=== PATIENT | male | born 1990 | race Caucasian/White ===

== ENCOUNTER 2021-08-01 20:31 | Inpatient (IN) ==
[2021-08-01] MEDS ORDERED: Acetaminophen 325 MG TABLET PO PRN (22:59)
[2021-08-01] MEDS ORDERED: Ondansetron 4 MG/2 ML VIAL IVP PRN (22:59)
[2021-08-01] MEDS ORDERED: Naloxone 0.4 MG/ML INJ IVP PRN (22:59)
[2021-08-01] MEDS ORDERED: Ipratropium/Albuterol Neb 3 ML IH PRN (23:03)
[2021-08-02 01:17] LABS: Basophils % 0.1 %; Hematocrit 43.4 % (37.5-50.1); Hemoglobin 14.5 g/dL (12.9-16.9); Immature Granulocytes % 1.2 % (0-4); Lymphocytes # 0.6 K/mcL (0.6-4.6); Lymphocytes % 5.4 %; Mean Corpuscular HGB Conc 33.4 g/dL (31.6-35.5); Mean Corpuscular Hemoglobin 29.5 pg (28.0-33.3); Mean Corpuscular Volume 88.4 fL (83.0-100.0); Mean Platelet Volume 9.7 fL (9.4-12.4); Monocytes # 0.2 K/mcL (0.0-1.3); Neutrophils # 9.9 K/mcL (1.6-8.9); Platelet Count 241 K/mcL (140-400); Red Blood Count 4.91 M/mcL (4.19-5.50); Red Cell Distribution Width 12.2 % (11.5-14.5); Segmented Neutrophils % 91.3 %; White Blood Count 10.9 K/mcL (4.3-11.1)
[2021-08-02 01:28] LABS: INR 1.2; Prothrombin Time 13.9 Seconds (9.4-12.1)
[2021-08-02 01:39] LABS: Alanine Aminotransferase 38 Units/L (7-52); Albumin 3.5 g/dL (3.5-5.7); Albumin/Globulin Ratio 1.1 (1.1-2.2); Alkaline Phosphatase 51 Units/L (34-104); Aspartate Amino Transferase 60 Units/L (13-39); BUN/Creatinine Ratio 15 (6-26); Bilirubin,Direct 0.3 mg/dL (0.0-0.2); Bilirubin,Indirect 0.4 mg/dL (0.0-1.0); Bilirubin,Total 0.7 mg/dL (0.3-1.0); Blood Urea Nitrogen 19 mg/dL (6-20); Calcium 8.3 mg/dL (8.6-10.3); Carbon Dioxide 23 mEq/L (23-29); Chloride 103 mEq/L (98-107); Chol/HDL Ratio 3.8 (0-4.9); Cholesterol 76 mg/dL (< 200); Creatine Kinase 540 Units/L (30-223); Globulin 3.3 g/dL (2.4-3.5); Glucose 147 mg/dL (70-105); HDL Cholesterol 20 mg/dL (40-59); LDL Cholesterol,Calculated 31 mg/dL (< 100); Lactate Dehydrogenase 928 Units/L (140-271); Magnesium 2.6 mg/dL (1.6-2.6); Osmolality,Calculated 285 (280-300); Sodium 135 mEq/L (136-145); Total Protein 6.8 g/dL (6.4-8.9); Triglycerides 123 mg/dL (< 150); eGFR For African Americans > 60 (> 60); eGFR For Non-African Americans > 60 (> 60)
[2021-08-02 01:40] LABS: Troponin I 0.03 ng/mL (< 0.04)
[2021-08-02 02:00] LABS: Ferritin > 1500 ng/mL (20-250)
[2021-08-02] MEDS ORDERED: Remdesivir 200 MG in 0.9 % Sodium Chloride 100 ML IVPB ONE (02:30)
[2021-08-02] MEDS ORDERED: Pantoprazole 40 MG VIAL IVP SCH (09:00)
[2021-08-02] MEDS ORDERED: *HR* Enoxaparin 40 MG/0.4 ML SYRINGE SQ SCH (09:00)
[2021-08-02] MEDS ORDERED: cefTRIAXone 1,000 MG in 0.9 % Sodium Chloride Mini Bag 100 ML IVPB SCH (09:00)
[2021-08-02] MEDS ORDERED: Azithromycin 500 MG in 0.9 % Sodium Chloride 250 ML IVPB SCH (09:00)
[2021-08-02] MEDS ORDERED: Dexamethasone Sodium Phos/PF 10 MG/ML VIAL IVP SCH (09:00)
[2021-08-02] MEDS ORDERED: Dexamethasone Sodium Phos/PF 10 MG/ML VIAL IVP ONE (12:19)
[2021-08-02] MEDS ORDERED: Acetaminophen 325 MG TABLET PO PRN (14:02)
[2021-08-02] MEDS ORDERED: Ipratropium/Albuterol Neb 3 ML IH PRN (14:02)
[2021-08-02] MEDS ORDERED: Naloxone 0.4 MG/ML INJ IVP PRN (14:02)
[2021-08-02] MEDS ORDERED: Ondansetron 4 MG/2 ML VIAL IVP PRN (14:02)
[2021-08-02] MEDS ORDERED: Dexmedetomidine HCl 400 MCG/100 ML MLS IVC SCH (14:30)
[2021-08-02] MEDS ORDERED: Dexmedetomidine HCl 400 MCG/100 ML MLS IVC ONE (14:39)
[2021-08-02 15:30] LABS: Bilirubin,Urine Negative (Negative); Blood,Urine Trace (Negative); Clarity,Urine Clear (Clear); Color,Urine Yellow (Yellow); Glucose,Urine (UA) Normal (Normal); Ketones,Urine Negative (Negative); Leukocyte Esterase,Urine Negative (Negative); Mucus,Urine Few per lpf (None-Few); Nitrite,Urine Negative (Negative); Protein,Urine 50 mg/dL (Neg-Trace); RBC,Urine 0-3 per hpf (0-3); Specific Gravity,Urine > 1.030 (1.010-1.025); Squamous Epithelial Cell,Urine Few per hpf (None-Few); Urobilinogen,Urine Normal (Normal)
[2021-08-02] MEDS: *HR* Enoxaparin 60 MG/0.6 ML SYRINGE SQ SCH (16:54)
[2021-08-03] MEDS ORDERED: Remdesivir 100 MG in 0.9 % Sodium Chloride 100 ML IVPB SCH (02:00)
[2021-08-03] MEDS: Remdesivir 100 MG in 0.9 % Sodium Chloride 100 ML IVPB SCH (02:16)
[2021-08-03 04:32] LABS: Basophils % 0.2 %; Hematocrit 43.5 % (37.5-50.1); Hemoglobin 14.8 g/dL (12.9-16.9); Immature Granulocytes % 1.2 % (0-4); Lymphocytes # 0.9 K/mcL (0.6-4.6); Lymphocytes % 6.6 %; Mean Corpuscular Hemoglobin 30.7 pg (28.0-33.3); Mean Corpuscular Volume 90.2 fL (83.0-100.0); Mean Platelet Volume 9.9 fL (9.4-12.4); Monocytes # 0.4 K/mcL (0.0-1.3); Monocytes % 3.4 %; Neutrophils # 11.5 K/mcL (1.6-8.9); Platelet Count 293 K/mcL (140-400); Red Blood Count 4.82 M/mcL (4.19-5.50); Red Cell Distribution Width 12.7 % (11.5-14.5); Segmented Neutrophils % 88.6 %; White Blood Count 12.9 K/mcL (4.3-11.1)
[2021-08-03 04:52] LABS: Alanine Aminotransferase 36 Units/L (7-52); Albumin 3.3 g/dL (3.5-5.7); Alkaline Phosphatase 73 Units/L (34-104); Aspartate Amino Transferase 48 Units/L (13-39); BUN/Creatinine Ratio 28 (6-26); Bilirubin,Direct 0.2 mg/dL (0.0-0.2); Bilirubin,Indirect 0.5 mg/dL (0.0-1.0); Bilirubin,Total 0.7 mg/dL (0.3-1.0); Blood Urea Nitrogen 32 mg/dL (6-20); C-Reactive Protein 159 mg/L (Less than 10); Calcium 8.5 mg/dL (8.6-10.3); Carbon Dioxide 26 mEq/L (23-29); Chloride 109 mEq/L (98-107); Globulin 3.3 g/dL (2.4-3.5); Glucose 158 mg/dL (70-105); Osmolality,Calculated 304 (280-300); Potassium 4.1 mEq/L (3.5-5.1); Sodium 142 mEq/L (136-145); Total Protein 6.6 g/dL (6.4-8.9); eGFR For African Americans > 60 (> 60); eGFR For Non-African Americans > 60 (> 60)
[2021-08-03 05:17] LABS: Ferritin > 1500 ng/mL (20-250)
[2021-08-03] MEDS: *HR* Enoxaparin 60 MG/0.6 ML SYRINGE SQ SCH ×2 (06:05→16:48)
[2021-08-03] MEDS: Pantoprazole 40 MG VIAL IVP SCH (08:25)
[2021-08-03] MEDS ORDERED: Dexamethasone Sodium Phos/PF 10 MG/ML VIAL IVP SCH ×2 (09:00)
[2021-08-03] MEDS ORDERED: Azithromycin 500 MG in 0.9 % Sodium Chloride 250 ML IVPB SCH (09:00)
[2021-08-03] MEDS ORDERED: *HR* Enoxaparin 40 MG/0.4 ML SYRINGE SQ SCH (09:00)
[2021-08-03] MEDS ORDERED: cefTRIAXone 1,000 MG in Water for inj. (sterile) 10 ML IVP SCH (09:00)
[2021-08-03] MEDS ORDERED: cefTRIAXone 1,000 MG in 0.9 % Sodium Chloride Mini Bag 100 ML IVPB SCH (09:00)
[2021-08-03 14:36] LABS: Phosphorous 3.2 mg/dL (2.7-4.5); Triglycerides 159 mg/dL (< 150)
[2021-08-03] MEDS ORDERED: Furosemide 40 MG/4 ML VIAL IVP ONE (15:01)
[2021-08-03] MEDS ORDERED: D10% in Water 500 ML IVC PRN (15:02)
[2021-08-03] MEDS ORDERED: Clinimix E 5%-15% SOLUTION 2,000 ML with MVI, adult with vitamin K 10 ML IVC SCH (17:00)
[2021-08-04] MEDS: Remdesivir 100 MG in 0.9 % Sodium Chloride 100 ML IVPB SCH (01:13)
[2021-08-04 03:52] LABS: Basophils # 0.1 K/mcL (0.0-0.2); Basophils % 0.5 %; Hematocrit 43.6 % (37.5-50.1); Hemoglobin 14.1 g/dL (12.9-16.9); Immature Granulocytes % 1.5 % (0-4); Lymphocytes # 0.8 K/mcL (0.6-4.6); Lymphocytes % 7.6 %; Mean Corpuscular HGB Conc 32.3 g/dL (31.6-35.5); Mean Corpuscular Hemoglobin 29.6 pg (28.0-33.3); Mean Corpuscular Volume 91.6 fL (83.0-100.0); Mean Platelet Volume 9.9 fL (9.4-12.4); Monocytes # 0.4 K/mcL (0.0-1.3); Monocytes % 3.9 %; Neutrophils # 8.9 K/mcL (1.6-8.9); Platelet Count 273 K/mcL (140-400); Red Blood Count 4.76 M/mcL (4.19-5.50); Segmented Neutrophils % 86.5 %; White Blood Count 10.3 K/mcL (4.3-11.1)
[2021-08-04 04:05] LABS: Prealbumin 7.7 mg/dL (17.0-34.0)
[2021-08-04 04:09] LABS: Alanine Aminotransferase 33 Units/L (7-52); Albumin 3.2 g/dL (3.5-5.7); Alkaline Phosphatase 78 Units/L (34-104); Aspartate Amino Transferase 38 Units/L (13-39); BUN/Creatinine Ratio 31 (6-26); Bilirubin,Direct 0.1 mg/dL (0.0-0.2); Bilirubin,Indirect 0.5 mg/dL (0.0-1.0); Bilirubin,Total 0.6 mg/dL (0.3-1.0); Blood Urea Nitrogen 36 mg/dL (6-20); C-Reactive Protein 85 mg/L (Less than 10); Calcium 8.1 mg/dL (8.6-10.3); Carbon Dioxide 27 mEq/L (23-29); Chloride 111 mEq/L (98-107); Globulin 3.2 g/dL (2.4-3.5); Glucose 201 mg/dL (70-105); Magnesium 3.2 mg/dL (1.6-2.6); Osmolality,Calculated 312 (280-300); Phosphorous 3.9 mg/dL (2.7-4.5); Potassium 4.1 mEq/L (3.5-5.1); Sodium 144 mEq/L (136-145); Total Protein 6.4 g/dL (6.4-8.9); eGFR For African Americans > 60 (> 60); eGFR For Non-African Americans > 60 (> 60)
[2021-08-04 04:12] LABS: Procalcitonin 0.25 ng/mL (0.00-0.15)
[2021-08-04] MEDS: *HR* Enoxaparin 60 MG/0.6 ML SYRINGE SQ SCH ×2 (04:58→17:25)
[2021-08-04] MEDS: Cholecalciferol (D-3) 1,000 UNIT (25MCG) TABLET PO SCH (07:31)
[2021-08-04] MEDS: Pantoprazole 40 MG VIAL IVP SCH (07:31)
[2021-08-04] MEDS: Dexamethasone Sodium Phos/PF 10 MG/ML VIAL IVP SCH (07:31)
[2021-08-04] MEDS: Dexmedetomidine HCl 400 MCG/100 ML MLS IVC SCH (11:08)
[2021-08-04] MEDS ORDERED: Furosemide 40 MG/4 ML VIAL IVP ONE (12:29)
[2021-08-04 13:30] LABS: Ferritin > 1500 ng/mL (20-250)
[2021-08-04] MEDS ORDERED: Clinimix 5%-20% SOLUTION 2,000 ML with MVI, adult with vitamin K 10 ML, Sodium Phosph... IVC SCH (17:00)
[2021-08-04] MEDS: FentaNYL (PF) 1,000 MCG/100 ML IV.SOLN IVC SCH ×2 (17:25→21:50)
[2021-08-04] MEDS ORDERED: 0.9 % Sodium Chloride 500 ML ONE (17:25)
[2021-08-04] MEDS ORDERED: Artificial Tears SOLN 15 ML BOTTLE BOTH EYES PRN (17:30)
[2021-08-04 18:07] LABS: ABG Base Excess 2 mEq/L (-2 to 3); ABG HCO3 27 mEq/L (21-27); ABG Oxygen Saturation 91 % (95-98); ABG PCO2 44 mmHg (35-45); ABG PH 7.39 pH Units (7.32-7.45); ABG PO2 61 mmHg (85-104); ABG TCO2 28 mEq/L (20-26); Blood Gas Modality AF; Blood Gas VT 400 cc
[2021-08-04] MEDS ORDERED: 0.9 % Sodium Chloride 1,000 ML ONE (18:37)
[2021-08-04] MEDS: Cisatracurium 200 MG in 0.9 % Sodium Chloride 180 ML IVC SCH (19:20)
[2021-08-04] MEDS: Chlorhexidine Rinse 15 ML MOUTHWASH MM SCH (20:43)
[2021-08-04] MEDS: Artificial Tears SOLN 15 ML BOTTLE BOTH EYES SCH ×2 (20:43→23:35)
[2021-08-05] MEDS: Remdesivir 100 MG in 0.9 % Sodium Chloride 100 ML IVPB SCH (02:43)
[2021-08-05] MEDS: FentaNYL (PF) 1,000 MCG/100 ML IV.SOLN IVC SCH ×4 (02:50→19:05)
[2021-08-05] MEDS ORDERED: Dextrose Gel 15 GM/37.5 ML TUBE PO PRN ×2 (03:26)
[2021-08-05] MEDS ORDERED: *HR* Dextrose 50 % in Water (Syg) 50 ML SYRINGE IVP PRN (03:26)
[2021-08-05] MEDS ORDERED: D5% in Water 1,000 ML IVC PRN (03:26)
[2021-08-05] MEDS ORDERED: Insulin LISPRO 300 UNITS/3 ML VIAL SUBQ SCH (03:30)
[2021-08-05] MEDS: Artificial Tears SOLN 15 ML BOTTLE BOTH EYES SCH ×8 (03:36→23:23)
[2021-08-05 04:44] LABS: VBG Ionized Calcium 1.15 mmol/L (1.15-1.35)
[2021-08-05] MEDS: Norepinephrine 4 MG/254 ML IV.SOLN IVC SCH ×2 (04:48→19:21)
[2021-08-05] MEDS: Dexmedetomidine HCl 400 MCG/100 ML MLS IVC SCH ×2 (04:49→19:22)
[2021-08-05 04:52] LABS: Basophils % 0.3 %; Eosinophils % 0.2 %; Hematocrit 45.5 % (37.5-50.1); Hemoglobin 14.5 g/dL (12.9-16.9); Immature Granulocytes % 1.6 % (0-4); Lymphocytes # 0.8 K/mcL (0.6-4.6); Lymphocytes % 8.5 %; Mean Corpuscular HGB Conc 31.9 g/dL (31.6-35.5); Mean Corpuscular Hemoglobin 30.5 pg (28.0-33.3); Mean Corpuscular Volume 95.8 fL (83.0-100.0); Mean Platelet Volume 10.2 fL (9.4-12.4); Monocytes # 0.3 K/mcL (0.0-1.3); Monocytes % 3.5 %; Neutrophils # 8.4 K/mcL (1.6-8.9); Platelet Count 202 K/mcL (140-400); Red Blood Count 4.75 M/mcL (4.19-5.50); Red Cell Distribution Width 12.9 % (11.5-14.5); Segmented Neutrophils % 85.9 %; White Blood Count 9.8 K/mcL (4.3-11.1)
[2021-08-05 05:12] LABS: Alanine Aminotransferase 35 Units/L (7-52); Albumin 3.2 g/dL (3.5-5.7); Albumin/Globulin Ratio 1.1 (1.1-2.2); Alkaline Phosphatase 79 Units/L (34-104); Aspartate Amino Transferase 33 Units/L (13-39); BUN/Creatinine Ratio 31 (6-26); Bilirubin,Direct 0.1 mg/dL (0.0-0.2); Bilirubin,Indirect 0.5 mg/dL (0.0-1.0); Bilirubin,Total 0.6 mg/dL (0.3-1.0); Blood Urea Nitrogen 36 mg/dL (6-20); C-Reactive Protein 44 mg/L (Less than 10); Carbon Dioxide 27 mEq/L (23-29); Chloride 110 mEq/L (98-107); Globulin 2.9 g/dL (2.4-3.5); Glucose 220 mg/dL (70-105); Magnesium 3.2 mg/dL (1.6-2.6); Osmolality,Calculated 311 (280-300); Phosphorous 4.5 mg/dL (2.7-4.5); Potassium 4.6 mEq/L (3.5-5.1); Sodium 143 mEq/L (136-145); Total Protein 6.1 g/dL (6.4-8.9); eGFR For African Americans > 60 (> 60); eGFR For Non-African Americans > 60 (> 60)
[2021-08-05] MEDS: *HR* Enoxaparin 60 MG/0.6 ML SYRINGE SQ SCH (05:29)
[2021-08-05] MEDS: Cisatracurium 200 MG in 0.9 % Sodium Chloride 180 ML IVC SCH ×2 (05:39→15:59)
[2021-08-05] MEDS ORDERED: *HR* Heparin 5,000 UNIT/ML VIAL IVP ONE (07:53)
[2021-08-05] MEDS ORDERED: *HR* Heparin 5,000 UNIT/ML VIAL IVP PRN ×2 (07:53)
[2021-08-05] MEDS ORDERED: Heparin 25,000UNIT/250ML 1/2NS 25,000 UNIT/250 ML IV.SOLN IVC SCH (08:00)
[2021-08-05] MEDS: Cholecalciferol (D-3) 1,000 UNIT (25MCG) TABLET PO SCH (08:20)
[2021-08-05] MEDS: Pantoprazole 40 MG VIAL IVP SCH (08:20)
[2021-08-05] MEDS: Dexamethasone Sodium Phos/PF 10 MG/ML VIAL IVP SCH (08:20)
[2021-08-05] MEDS: Chlorhexidine Rinse 15 ML MOUTHWASH MM SCH ×2 (08:20→19:22)
[2021-08-05 09:21] LABS: Hematocrit 45.3 % (37.5-50.1); Hemoglobin 14.3 g/dL (12.9-16.9); Mean Corpuscular HGB Conc 31.6 g/dL (31.6-35.5); Mean Corpuscular Hemoglobin 30.2 pg (28.0-33.3); Mean Corpuscular Volume 95.8 fL (83.0-100.0); Platelet Count 189 K/mcL (140-400); Red Blood Count 4.73 M/mcL (4.19-5.50); Red Cell Distribution Width 12.9 % (11.5-14.5); White Blood Count 9.8 K/mcL (4.3-11.1)
[2021-08-05 09:25] LABS: Heparin anti-factor XA UFH 0.56 IU/mL (0.30-0.70); INR 1.3; Prothrombin Time 14.5 Seconds (9.4-12.1)
[2021-08-05] MEDS: Heparin 25,000 UNIT/250 ML 25,000 UNIT/250 ML IV.SOLN IVC SCH (10:17)
[2021-08-05] MEDS ORDERED: D10% in Water 500 ML IVC PRN (11:31)
[2021-08-05] MEDS: Insulin LISPRO 300 UNITS/3 ML VIAL SUBQ SCH ×4 (11:58→23:23)
[2021-08-05] MEDS ORDERED: Clinimix 5%-20% SOLUTION 2,000 ML with MVI, adult with vitamin K 10 ML, Sodium Phosph... IVC SCH (17:00)
[2021-08-06] MEDS: FentaNYL (PF) 2,500 MCG/50 ML IV.SOLN IVC SCH ×3 (00:48→18:19)
[2021-08-06] MEDS: Remdesivir 100 MG in 0.9 % Sodium Chloride 100 ML IVPB SCH (03:18)
[2021-08-06] MEDS: Cisatracurium 200 MG in 0.9 % Sodium Chloride 180 ML IVC SCH ×2 (03:31→14:55)
[2021-08-06 03:33] LABS: Basophils % 0.3 %; Eosinophils # 0.1 K/mcL (0.0-0.6); Eosinophils % 0.9 %; Hematocrit 44.9 % (37.5-50.1); Hemoglobin 14.4 g/dL (12.9-16.9); Immature Granulocytes % 2.9 % (0-4); Lymphocytes # 0.6 K/mcL (0.6-4.6); Lymphocytes % 6.5 %; Mean Corpuscular HGB Conc 32.1 g/dL (31.6-35.5); Mean Corpuscular Hemoglobin 30.8 pg (28.0-33.3); Mean Corpuscular Volume 96.1 fL (83.0-100.0); Mean Platelet Volume 9.9 fL (9.4-12.4); Monocytes # 0.4 K/mcL (0.0-1.3); Monocytes % 3.7 %; Neutrophils # 8.5 K/mcL (1.6-8.9); Platelet Count 218 K/mcL (140-400); Red Blood Count 4.67 M/mcL (4.19-5.50); Red Cell Distribution Width 12.5 % (11.5-14.5); Segmented Neutrophils % 85.7 %; White Blood Count 9.9 K/mcL (4.3-11.1)
[2021-08-06] MEDS: Artificial Tears SOLN 15 ML BOTTLE BOTH EYES SCH ×6 (03:34→23:53)
[2021-08-06 03:46] LABS: Heparin anti-factor XA UFH 0.82 IU/mL (0.30-0.70)
[2021-08-06 03:55] LABS: Alanine Aminotransferase 39 Units/L (7-52); Albumin/Globulin Ratio 1.1 (1.1-2.2); Alkaline Phosphatase 67 Units/L (34-104); Aspartate Amino Transferase 25 Units/L (13-39); BUN/Creatinine Ratio 24 (6-26); Bilirubin,Direct 0.1 mg/dL (0.0-0.2); Bilirubin,Indirect 0.4 mg/dL (0.0-1.0); Bilirubin,Total 0.5 mg/dL (0.3-1.0); Blood Urea Nitrogen 24 mg/dL (6-20); C-Reactive Protein 25 mg/L (Less than 10); Calcium 7.9 mg/dL (8.6-10.3); Carbon Dioxide 30 mEq/L (23-29); Chloride 110 mEq/L (98-107); Globulin 2.7 g/dL (2.4-3.5); Glucose 196 mg/dL (70-105); Osmolality,Calculated 303 (280-300); Phosphorous 3.3 mg/dL (2.7-4.5); Potassium 5.1 mEq/L (3.5-5.1); Sodium 142 mEq/L (136-145); Total Protein 5.7 g/dL (6.4-8.9); eGFR For African Americans > 60 (> 60); eGFR For Non-African Americans > 60 (> 60)
[2021-08-06] MEDS: Insulin LISPRO 300 UNITS/3 ML VIAL SUBQ SCH ×6 (04:19→23:53)
[2021-08-06 04:55] LABS: ABG Base Excess 1 mEq/L (-2 to 3); ABG HCO3 28 mEq/L (21-27); ABG Oxygen Saturation 100 % (95-98); ABG PCO2 54 mmHg (35-45); ABG PH 7.32 pH Units (7.32-7.45); ABG PO2 186 mmHg (85-104); ABG TCO2 30 mEq/L (20-26); Blood Gas Modality ASSIST CONTROL; Blood Gas VT 400 cc
[2021-08-06] MEDS: Heparin 25,000 UNIT/250 ML 25,000 UNIT/250 ML IV.SOLN IVC SCH (06:38)
[2021-08-06] MEDS: Cholecalciferol (D-3) 1,000 UNIT (25MCG) TABLET PO SCH (07:19)
[2021-08-06] MEDS: Chlorhexidine Rinse 15 ML MOUTHWASH MM SCH ×2 (07:19→20:20)
[2021-08-06] MEDS: Pantoprazole 40 MG VIAL IVP SCH (07:19)
[2021-08-06] MEDS: Dexamethasone Sodium Phos/PF 10 MG/ML VIAL IVP SCH (07:20)
[2021-08-06 08:20] LABS: ABG Base Excess 2 mEq/L (-2 to 3); ABG HCO3 29 mEq/L (21-27); ABG Oxygen Saturation 99 % (95-98); ABG PCO2 54 mmHg (35-45); ABG PH 7.33 pH Units (7.32-7.45); ABG PO2 130 mmHg (85-104); ABG TCO2 30 mEq/L (20-26); Blood Gas Modality ASSIST CONTROL; Blood Gas VT 400 cc
[2021-08-06] MEDS ORDERED: Clinimix 5%-20% SOLUTION 2,000 ML with MVI, adult with vitamin K 10 ML, Sodium Phosph... IVC SCH (17:00)
[2021-08-06 19:04] LABS: Ferritin 1050 ng/mL (20-250)
[2021-08-06] MEDS: Dexmedetomidine HCl 400 MCG/100 ML MLS IVC SCH (21:11)
[2021-08-06] MEDS: Norepinephrine 4 MG/254 ML IV.SOLN IVC SCH (21:12)
[2021-08-07 02:51] LABS: Basophils # 0.1 K/mcL (0.0-0.2); Basophils % 0.7 %; Eosinophils # 0.1 K/mcL (0.0-0.6); Eosinophils % 1.3 %; Hematocrit 45.6 % (37.5-50.1); Hemoglobin 14.4 g/dL (12.9-16.9); Immature Granulocytes % 5.8 % (0-4); Lymphocytes % 8.7 %; Mean Corpuscular HGB Conc 31.6 g/dL (31.6-35.5); Mean Corpuscular Hemoglobin 30.5 pg (28.0-33.3); Mean Corpuscular Volume 96.6 fL (83.0-100.0); Mean Platelet Volume 9.8 fL (9.4-12.4); Monocytes # 0.5 K/mcL (0.0-1.3); Monocytes % 4.4 %; Neutrophils # 8.6 K/mcL (1.6-8.9); Platelet Count 228 K/mcL (140-400); Red Blood Count 4.72 M/mcL (4.19-5.50); Red Cell Distribution Width 12.1 % (11.5-14.5); Segmented Neutrophils % 79.1 %; White Blood Count 10.9 K/mcL (4.3-11.1)
[2021-08-07 02:59] LABS: Heparin anti-factor XA UFH 0.69 IU/mL (0.30-0.70)
[2021-08-07 03:06] LABS: Alanine Aminotransferase 56 Units/L (7-52); Albumin/Globulin Ratio 1.2 (1.1-2.2); Alkaline Phosphatase 67 Units/L (34-104); Aspartate Amino Transferase 46 Units/L (13-39); BUN/Creatinine Ratio 25 (6-26); Bilirubin,Direct 0.1 mg/dL (0.0-0.2); Bilirubin,Indirect 0.4 mg/dL (0.0-1.0); Bilirubin,Total 0.5 mg/dL (0.3-1.0); Blood Urea Nitrogen 21 mg/dL (6-20); C-Reactive Protein 14 mg/L (Less than 10); Calcium 7.9 mg/dL (8.6-10.3); Carbon Dioxide 30 mEq/L (23-29); Chloride 106 mEq/L (98-107); Globulin 2.5 g/dL (2.4-3.5); Glucose 192 mg/dL (70-105); Magnesium 2.5 mg/dL (1.6-2.6); Osmolality,Calculated 294 (280-300); Phosphorous 3.2 mg/dL (2.7-4.5); Potassium 5.1 mEq/L (3.5-5.1); Sodium 138 mEq/L (136-145); Total Protein 5.5 g/dL (6.4-8.9); eGFR For African Americans > 60 (> 60); eGFR For Non-African Americans > 60 (> 60)
[2021-08-07 03:12] LABS: Platelet Estimate Normal (Normal); Smudge Cells Present (Not Present)
[2021-08-07] MEDS: Cisatracurium 200 MG in 0.9 % Sodium Chloride 180 ML IVC SCH (03:25)
[2021-08-07 04:34] LABS: ABG Base Excess 3 mEq/L (-2 to 3); ABG HCO3 32 mEq/L (21-27); ABG Oxygen Saturation 96 % (95-98); ABG PCO2 63 mmHg (35-45); ABG PH 7.31 pH Units (7.32-7.45); ABG PO2 92 mmHg (85-104); ABG TCO2 34 mEq/L (20-26); Blood Gas VT 400 cc
[2021-08-07] MEDS: Insulin LISPRO 300 UNITS/3 ML VIAL SUBQ SCH ×5 (05:04→19:40)
[2021-08-07] MEDS: Artificial Tears SOLN 15 ML BOTTLE BOTH EYES SCH ×5 (05:04→19:40)
[2021-08-07] MEDS: FentaNYL (PF) 2,500 MCG/50 ML IV.SOLN IVC SCH (06:29)
[2021-08-07] MEDS: Chlorhexidine Rinse 15 ML MOUTHWASH MM SCH ×2 (08:36→19:40)
[2021-08-07] MEDS: Dexamethasone Sodium Phos/PF 10 MG/ML VIAL IVP SCH (08:37)
[2021-08-07] MEDS: Cholecalciferol (D-3) 1,000 UNIT (25MCG) TABLET PO SCH (08:37)
[2021-08-07] MEDS: Pantoprazole 40 MG VIAL IVP SCH (08:37)
[2021-08-07] MEDS: Dexmedetomidine HCl 400 MCG/100 ML MLS IVC SCH (08:38)
[2021-08-07] MEDS: Heparin 25,000 UNIT/250 ML 25,000 UNIT/250 ML IV.SOLN IVC SCH ×2 (08:38→11:04)
[2021-08-07] MEDS: Furosemide 40 MG/4 ML VIAL IVP SCH (14:43)
[2021-08-07] MEDS ORDERED: Clinimix 5%-20% SOLUTION 2,000 ML with MVI, adult with vitamin K 10 ML, Sodium Phosph... IVC SCH (17:00)
[2021-08-07] MEDS: Norepinephrine 4 MG/254 ML IV.SOLN IVC SCH (18:26)
[2021-08-08] MEDS: Artificial Tears SOLN 15 ML BOTTLE BOTH EYES SCH ×6 (00:08→19:36)
[2021-08-08] MEDS: Insulin LISPRO 300 UNITS/3 ML VIAL SUBQ SCH ×6 (00:08→19:57)
[2021-08-08 03:47] LABS: Eosinophils # 0.3 K/mcL (0.0-0.6); Hematocrit 46.8 % (37.5-50.1); Hemoglobin 15.2 g/dL (12.9-16.9); Mean Corpuscular HGB Conc 32.5 g/dL (31.6-35.5); Mean Corpuscular Hemoglobin 30.8 pg (28.0-33.3); Mean Corpuscular Volume 94.9 fL (83.0-100.0); Mean Platelet Volume 10.1 fL (9.4-12.4); Platelet Count 262 K/mcL (140-400); Red Blood Count 4.93 M/mcL (4.19-5.50); White Blood Count 12.9 K/mcL (4.3-11.1)
[2021-08-08 03:49] LABS: VBG Ionized Calcium 1.22 mmol/L (1.15-1.35)
[2021-08-08 04:06] LABS: Large Platelets Present (Not Present); Lymphocytes # 0.5 K/mcL (0.6-4.6); Monocytes # 0.3 K/mcL (0.0-1.3); Neutrophils # 11.9 K/mcL (1.6-8.9); Platelet Estimate Normal (Normal)
[2021-08-08 04:10] LABS: Alanine Aminotransferase 97 Units/L (7-52); Albumin 3.1 g/dL (3.5-5.7); Albumin/Globulin Ratio 1.1 (1.1-2.2); Alkaline Phosphatase 69 Units/L (34-104); Aspartate Amino Transferase 59 Units/L (13-39); BUN/Creatinine Ratio 28 (6-26); Bilirubin,Direct 0.3 mg/dL (0.0-0.2); Bilirubin,Indirect 0.5 mg/dL (0.0-1.0); Bilirubin,Total 0.8 mg/dL (0.3-1.0); Blood Urea Nitrogen 24 mg/dL (6-20); C-Reactive Protein 7 mg/L (Less than 10); Calcium 8.2 mg/dL (8.6-10.3); Carbon Dioxide 32 mEq/L (23-29); Chloride 101 mEq/L (98-107); Globulin 2.7 g/dL (2.4-3.5); Glucose 189 mg/dL (70-105); Magnesium 2.3 mg/dL (1.6-2.6); Osmolality,Calculated 293 (280-300); Phosphorous 3.4 mg/dL (2.7-4.5); Sodium 137 mEq/L (136-145); Total Protein 5.8 g/dL (6.4-8.9); eGFR For African Americans > 60 (> 60); eGFR For Non-African Americans > 60 (> 60)
[2021-08-08] MEDS: Cisatracurium 200 MG in 0.9 % Sodium Chloride 180 ML IVC SCH ×2 (05:00→17:15)
[2021-08-08 05:37] LABS: ABG Base Excess 6 mEq/L (-2 to 3); ABG HCO3 34 mEq/L (21-27); ABG Oxygen Saturation 94 % (95-98); ABG PCO2 65 mmHg (35-45); ABG PH 7.33 pH Units (7.32-7.45); ABG PO2 80 mmHg (85-104); ABG TCO2 36 mEq/L (20-26); Blood Gas Modality ASSIST CONTROL; Blood Gas VT 400 cc
[2021-08-08] MEDS: FentaNYL (PF) 2,500 MCG/50 ML IV.SOLN IVC SCH ×3 (07:22→20:30)
[2021-08-08] MEDS: Furosemide 40 MG/4 ML VIAL IVP SCH (08:33)
[2021-08-08] MEDS: Dexamethasone Sodium Phos/PF 10 MG/ML VIAL IVP SCH (08:33)
[2021-08-08] MEDS: Pantoprazole 40 MG VIAL IVP SCH (08:33)
[2021-08-08] MEDS: Cholecalciferol (D-3) 1,000 UNIT (25MCG) TABLET PO SCH (08:34)
[2021-08-08] MEDS: Chlorhexidine Rinse 15 ML MOUTHWASH MM SCH ×2 (08:34→19:36)
[2021-08-08] MEDS: Heparin 25,000 UNIT/250 ML 25,000 UNIT/250 ML IV.SOLN IVC SCH (11:05)
[2021-08-08] MEDS: Dexmedetomidine HCl 400 MCG/100 ML MLS IVC SCH (11:13)
[2021-08-08] MEDS: Norepinephrine 4 MG/254 ML IV.SOLN IVC SCH (16:46)
[2021-08-08] MEDS ORDERED: Clinimix 5%-20% SOLUTION 2,000 ML with MVI, adult with vitamin K 10 ML, Sodium Phosph... IVC SCH (17:00)
[2021-08-09] MEDS: Insulin LISPRO 300 UNITS/3 ML VIAL SUBQ SCH ×7 (00:14→23:58)
[2021-08-09] MEDS: Artificial Tears SOLN 15 ML BOTTLE BOTH EYES SCH ×6 (00:14→19:46)
[2021-08-09 04:07] LABS: VBG Ionized Calcium 1.23 mmol/L (1.15-1.35)
[2021-08-09 04:11] LABS: Basophils % 0.1 %; Eosinophils # 0.4 K/mcL (0.0-0.6); Hematocrit 47.4 % (37.5-50.1); Hemoglobin 14.9 g/dL (12.9-16.9); Immature Granulocytes % 9.2 % (0-4); Lymphocytes # 1.8 K/mcL (0.6-4.6); Lymphocytes % 9.9 %; Mean Corpuscular HGB Conc 31.4 g/dL (31.6-35.5); Mean Corpuscular Hemoglobin 29.9 pg (28.0-33.3); Mean Corpuscular Volume 95.2 fL (83.0-100.0); Mean Platelet Volume 9.9 fL (9.4-12.4); Monocytes # 1.2 K/mcL (0.0-1.3); Monocytes % 6.4 %; Neutrophils # 13.2 K/mcL (1.6-8.9); Platelet Count 268 K/mcL (140-400); Red Blood Count 4.98 M/mcL (4.19-5.50); Segmented Neutrophils % 72.4 %; White Blood Count 18.2 K/mcL (4.3-11.1)
[2021-08-09 04:18] LABS: Heparin anti-factor XA UFH 0.47 IU/mL (0.30-0.70)
[2021-08-09 04:28] LABS: Alanine Aminotransferase 180 Units/L (7-52); Albumin 3.2 g/dL (3.5-5.7); Albumin/Globulin Ratio 1.2 (1.1-2.2); Alkaline Phosphatase 73 Units/L (34-104); Aspartate Amino Transferase 84 Units/L (13-39); BUN/Creatinine Ratio 35 (6-26); Bilirubin,Direct 0.4 mg/dL (0.0-0.2); Bilirubin,Indirect 0.6 mg/dL (0.0-1.0); Blood Urea Nitrogen 27 mg/dL (6-20); C-Reactive Protein < 5 mg/L (Less than 10); Calcium 8.4 mg/dL (8.6-10.3); Carbon Dioxide 34 mEq/L (23-29); Chloride 99 mEq/L (98-107); Globulin 2.6 g/dL (2.4-3.5); Glucose 235 mg/dL (70-105); Magnesium 2.3 mg/dL (1.6-2.6); Osmolality,Calculated 295 (280-300); Potassium 4.8 mEq/L (3.5-5.1); Sodium 136 mEq/L (136-145); Total Protein 5.8 g/dL (6.4-8.9); eGFR For African Americans > 60 (> 60); eGFR For Non-African Americans > 60 (> 60)
[2021-08-09 04:54] LABS: ABG Base Excess 7 mEq/L (-2 to 3); ABG HCO3 37 mEq/L (21-27); ABG Oxygen Saturation 93 % (95-98); ABG PCO2 74 mmHg (35-45); ABG PH 7.31 pH Units (7.32-7.45); ABG PO2 76 mmHg (85-104); ABG TCO2 39 mEq/L (20-26); Blood Gas Modality ASSIST CONTROL; Blood Gas VT 400 cc
[2021-08-09 05:03] LABS: Platelet Estimate Normal (Normal); Reactive Lymphocytes Present (Not Present)
[2021-08-09] MEDS: Dexmedetomidine HCl 400 MCG/100 ML MLS IVC SCH ×3 (06:07→19:35)
[2021-08-09] MEDS: Cisatracurium 200 MG in 0.9 % Sodium Chloride 180 ML IVC SCH ×2 (06:27→20:35)
[2021-08-09] MEDS: Heparin 25,000 UNIT/250 ML 25,000 UNIT/250 ML IV.SOLN IVC SCH (06:50)
[2021-08-09] MEDS: Chlorhexidine Rinse 15 ML MOUTHWASH MM SCH ×2 (08:14→19:46)
[2021-08-09] MEDS: Dexamethasone Sodium Phos/PF 10 MG/ML VIAL IVP SCH (08:14)
[2021-08-09] MEDS: Cholecalciferol (D-3) 1,000 UNIT (25MCG) TABLET PO SCH (08:14)
[2021-08-09] MEDS: Insulin DETEMIR 100 UNIT/ML X5UNITS SUBQ SCH ×2 (08:14→19:46)
[2021-08-09] MEDS: Pantoprazole 40 MG VIAL IVP SCH (08:14)
[2021-08-09] MEDS: Furosemide 40 MG/4 ML VIAL IVP SCH (08:14)
[2021-08-09] MEDS: FentaNYL (PF) 2,500 MCG/50 ML IV.SOLN IVC SCH ×2 (09:00→17:08)
[2021-08-09] MEDS ORDERED: Ipratropium/Albuterol Neb 3 ML IH SCH (12:15)
[2021-08-09] MEDS ORDERED: Insulin DETEMIR 100 UNIT/ML X5UNITS SUBQ ONE (12:19)
[2021-08-09] MEDS: Ipratropium 1 PUFF INHALER IH SCH ×4 (12:40→23:35)
[2021-08-09] MEDS ORDERED: Clinimix 5%-20% SOLUTION 2,000 ML with MVI, adult with vitamin K 10 ML, Sodium Phosph... IVC SCH (17:00)
[2021-08-09] MEDS: Norepinephrine 4 MG/254 ML IV.SOLN IVC SCH (17:23)
[2021-08-10] MEDS: Artificial Tears SOLN 15 ML BOTTLE BOTH EYES SCH ×6 (00:43→19:54)
[2021-08-10] MEDS: Ipratropium 1 PUFF INHALER IH SCH ×5 (03:26→19:55)
[2021-08-10 04:02] LABS: ABG Base Excess 4 mEq/L (-2 to 3); ABG HCO3 34 mEq/L (21-27); ABG Oxygen Saturation 87 % (95-98); ABG PCO2 71 mmHg (35-45); ABG PH 7.29 pH Units (7.32-7.45); ABG PO2 62 mmHg (85-104); ABG TCO2 36 mEq/L (20-26); Blood Gas VT 400 cc
[2021-08-10] MEDS: Insulin LISPRO 300 UNITS/3 ML VIAL SUBQ SCH ×5 (04:20→19:53)
[2021-08-10] MEDS: FentaNYL (PF) 2,500 MCG/50 ML IV.SOLN IVC SCH ×2 (04:21→18:13)
[2021-08-10] MEDS: Dexmedetomidine HCl 400 MCG/100 ML MLS IVC SCH ×3 (04:35→23:13)
[2021-08-10] MEDS: Heparin 25,000 UNIT/250 ML 25,000 UNIT/250 ML IV.SOLN IVC SCH ×2 (05:00→07:46)
[2021-08-10 05:03] LABS: Basophils % 0.2 %; Eosinophils # 0.3 K/mcL (0.0-0.6); Eosinophils % 1.4 %; Hematocrit 47.3 % (37.5-50.1); Hemoglobin 14.8 g/dL (12.9-16.9); Immature Granulocytes % 9.5 % (0-4); Lymphocytes % 9.4 %; Mean Corpuscular HGB Conc 31.3 g/dL (31.6-35.5); Mean Corpuscular Hemoglobin 30.1 pg (28.0-33.3); Mean Corpuscular Volume 96.1 fL (83.0-100.0); Mean Platelet Volume 10.3 fL (9.4-12.4); Monocytes # 1.2 K/mcL (0.0-1.3); Monocytes % 5.5 %; Neutrophils # 15.6 K/mcL (1.6-8.9); Platelet Count 253 K/mcL (140-400); Red Blood Count 4.92 M/mcL (4.19-5.50); Red Cell Distribution Width 12.2 % (11.5-14.5); White Blood Count 21.1 K/mcL (4.3-11.1)
[2021-08-10 05:09] LABS: Heparin anti-factor XA UFH 0.44 IU/mL (0.30-0.70)
[2021-08-10 05:26] LABS: BUN/Creatinine Ratio 32 (6-26); Blood Urea Nitrogen 25 mg/dL (6-20); Calcium 8.4 mg/dL (8.6-10.3); Carbon Dioxide 35 mEq/L (23-29); Chloride 95 mEq/L (98-107); Glucose 265 mg/dL (70-105); Magnesium 2.2 mg/dL (1.6-2.6); Osmolality,Calculated 292 (280-300); Potassium 5.1 mEq/L (3.5-5.1); Sodium 134 mEq/L (136-145); Triglycerides 566 mg/dL (< 150); eGFR For African Americans > 60 (> 60); eGFR For Non-African Americans > 60 (> 60)
[2021-08-10 05:34] LABS: Platelet Estimate Normal (Normal)
[2021-08-10] MEDS: Cisatracurium 200 MG in 0.9 % Sodium Chloride 180 ML IVC SCH ×2 (06:43→18:12)
[2021-08-10] MEDS: Chlorhexidine Rinse 15 ML MOUTHWASH MM SCH ×2 (07:44→19:53)
[2021-08-10] MEDS: Cholecalciferol (D-3) 1,000 UNIT (25MCG) TABLET PO SCH (07:44)
[2021-08-10] MEDS: Insulin DETEMIR 100 UNIT/ML X5UNITS SUBQ SCH ×2 (07:45→19:53)
[2021-08-10] MEDS: Furosemide 40 MG/4 ML VIAL IVP SCH (07:45)
[2021-08-10] MEDS: Dexamethasone Sodium Phos/PF 10 MG/ML VIAL IVP SCH (07:45)
[2021-08-10] MEDS: Pantoprazole 40 MG VIAL IVP SCH (07:45)
[2021-08-10] MEDS: Docusate Oral Soln 100 MG/10 ML UDC GTUBE SCH ×2 (13:57→19:53)
[2021-08-10] MEDS: Norepinephrine 4 MG/254 ML IV.SOLN IVC SCH (15:56)
[2021-08-10] MEDS ORDERED: Clinimix 5%-20% SOLUTION 2,000 ML with MVI, adult with vitamin K 10 ML, Sodium Phosph... IVC SCH (17:00)
[2021-08-10 17:23] LABS: Adenovirus Not Detected (Not Detect); Coronavirus 229E Not Detected (Not Detect); Coronavirus HKU1 Not Detected (Not Detect); Coronavirus NL63 Not Detected (Not Detect); Coronavirus OC43 Not Detected (Not Detect)
[2021-08-10 17:25] LABS: Bordetella Pertussis Not Detected (Not Detect); Chlamydophila pneumoniae Not Detected (Not Detect); Human Metapneumovirus Not Detected (Not Detect); Human Rhinovirus/Enterovirus Not Detected (Not Detect); Influenza A Subtype 2009 H1 Not Detected (Not Detect); Influenza B Not Detected (Not Detect); Mycoplasma pneumoniae Not Detected (Not Detect); Parainfluenza Virus 1 Not Detected (Not Detect); Parainfluenza Virus 2 Not Detected (Not Detect); Parainfluenza Virus 3 Not Detected (Not Detect); Parainfluenza Virus 4 Not Detected (Not Detect); Respiratory Syncytial Virus Not Detected (Not Detect); SARS-CoV-2 DETECTED (Not Detect)
[2021-08-10 17:37] LABS: ABG Base Excess 7 mEq/L (-2 to 3); ABG HCO3 37 mEq/L (21-27); ABG Oxygen Saturation 91 % (95-98); ABG PCO2 77 mmHg (35-45); ABG PH 7.29 pH Units (7.32-7.45); ABG PO2 72 mmHg (85-104); ABG TCO2 39 mEq/L (20-26); Blood Gas VT 380 cc
[2021-08-11] MEDS: Ipratropium 1 PUFF INHALER IH SCH ×7 (00:02→23:33)
[2021-08-11] MEDS: Insulin LISPRO 300 UNITS/3 ML VIAL SUBQ SCH ×7 (00:05→23:53)
[2021-08-11] MEDS: Artificial Tears SOLN 15 ML BOTTLE BOTH EYES SCH ×8 (00:05→23:52)
[2021-08-11] MEDS: Heparin 25,000 UNIT/250 ML 25,000 UNIT/250 ML IV.SOLN IVC SCH ×2 (03:01→22:32)
[2021-08-11] MEDS: Cisatracurium 200 MG in 0.9 % Sodium Chloride 180 ML IVC SCH (03:50)
[2021-08-11] MEDS: FentaNYL (PF) 2,500 MCG/50 ML IV.SOLN IVC SCH ×2 (04:04→15:29)
[2021-08-11 04:19] LABS: ABG Base Excess 5 mEq/L (-2 to 3); ABG HCO3 34 mEq/L (21-27); ABG Oxygen Saturation 94 % (95-98); ABG PCO2 68 mmHg (35-45); ABG PH 7.31 pH Units (7.32-7.45); ABG PO2 80 mmHg (85-104); ABG TCO2 36 mEq/L (20-26); Blood Gas VT 380 cc
[2021-08-11 04:55] LABS: Basophils % 0.1 %; Nucleated Red Blood Cells 0.1 /100 WBC (0)
[2021-08-11 04:57] LABS: Eosinophils # 0.3 K/mcL (0.0-0.6); Eosinophils % 0.9 %; Hemoglobin 14.3 g/dL (12.9-16.9); Immature Granulocytes % 9.3 % (0-4); Lymphocytes % 7.1 %; Mean Corpuscular HGB Conc 31.8 g/dL (31.6-35.5); Mean Corpuscular Hemoglobin 30.3 pg (28.0-33.3); Mean Corpuscular Volume 95.3 fL (83.0-100.0); Mean Platelet Volume 10.6 fL (9.4-12.4); Monocytes # 1.5 K/mcL (0.0-1.3); Monocytes % 5.3 %; Neutrophils # 22.3 K/mcL (1.6-8.9); Platelet Count 261 K/mcL (140-400); Red Blood Count 4.72 M/mcL (4.19-5.50); Red Cell Distribution Width 12.2 % (11.5-14.5); Segmented Neutrophils % 77.3 %; White Blood Count 28.8 K/mcL (4.3-11.1)
[2021-08-11] MEDS: Dexmedetomidine HCl 400 MCG/100 ML MLS IVC SCH ×4 (05:05→20:06)
[2021-08-11 05:08] LABS: BUN/Creatinine Ratio 39 (6-26); Blood Urea Nitrogen 28 mg/dL (6-20); Calcium 8.4 mg/dL (8.6-10.3); Carbon Dioxide 37 mEq/L (23-29); Chloride 94 mEq/L (98-107); Glucose 300 mg/dL (70-105); Magnesium 2.2 mg/dL (1.6-2.6); Osmolality,Calculated 293 (280-300); Phosphorous 2.9 mg/dL (2.7-4.5); Potassium 5.5 mEq/L (3.5-5.1); Sodium 133 mEq/L (136-145); eGFR For African Americans > 60 (> 60); eGFR For Non-African Americans > 60 (> 60)
[2021-08-11 05:10] LABS: Prealbumin 38.8 mg/dL (17.0-34.0)
[2021-08-11 05:17] LABS: Procalcitonin 0.17 ng/mL (0.00-0.15)
[2021-08-11] MEDS: Docusate Oral Soln 100 MG/10 ML UDC GTUBE SCH ×2 (08:50→20:30)
[2021-08-11] MEDS: Furosemide 40 MG/4 ML VIAL IVP SCH (08:51)
[2021-08-11] MEDS: Pantoprazole 40 MG VIAL IVP SCH (08:51)
[2021-08-11] MEDS: Cholecalciferol (D-3) 1,000 UNIT (25MCG) TABLET PO SCH (08:51)
[2021-08-11] MEDS: Chlorhexidine Rinse 15 ML MOUTHWASH MM SCH ×2 (08:51→20:30)
[2021-08-11] MEDS: Dexamethasone Sodium Phos/PF 10 MG/ML VIAL IVP SCH (08:51)
[2021-08-11] MEDS: Insulin DETEMIR 100 UNIT/ML X5UNITS SUBQ SCH ×2 (08:52→20:30)
[2021-08-11 09:55] LABS: Albumin 3.3 g/dL (3.5-5.7); Albumin/Globulin Ratio 1.5 (1.1-2.2); Bilirubin,Direct 0.3 mg/dL (0.0-0.2); Bilirubin,Indirect 0.6 mg/dL (0.0-1.0); Bilirubin,Total 0.9 mg/dL (0.3-1.0); Globulin 2.2 g/dL (2.4-3.5); Total Protein 5.5 g/dL (6.4-8.9)
[2021-08-11] MEDS ORDERED: Vancomycin 1,500 MG/265 ML IV.SOLN IVPB SCH (10:00)
[2021-08-11] MEDS: Cisatracurium 400 MG in 0.9 % Sodium Chloride 360 ML IVC SCH (10:25)
[2021-08-11 13:25] LABS: BUN/Creatinine Ratio 35 (6-26); Blood Urea Nitrogen 27 mg/dL (6-20); Calcium 8.3 mg/dL (8.6-10.3); Carbon Dioxide 36 mEq/L (23-29); Chloride 90 mEq/L (98-107); Glucose 379 mg/dL (70-105); Osmolality,Calculated 295 (280-300); Potassium 5.5 mEq/L (3.5-5.1); Sodium 132 mEq/L (136-145); eGFR For African Americans > 60 (> 60); eGFR For Non-African Americans > 60 (> 60)
[2021-08-11] MEDS: Piperacillin/Tazobactam 3.375 GM in 0.9 % Sodium Chloride Mini Bag 100 ML IVPB SCH ×2 (13:28→20:30)
[2021-08-11] MEDS ORDERED: Insulin DETEMIR 100 UNIT/ML X5UNITS SUBQ ONE (16:30)
[2021-08-11] MEDS ORDERED: Clinimix 5%-20% SOLUTION 2,000 ML with MVI, adult with vitamin K 10 ML, Sodium Phosph... IVC SCH (17:00)
[2021-08-11] MEDS: Norepinephrine 4 MG/254 ML IV.SOLN IVC SCH (20:26)
[2021-08-11] MEDS ORDERED: Insulin DETEMIR 100 UNIT/ML X5UNITS SUBQ SCH (21:00)
[2021-08-12] MEDS: Dexmedetomidine HCl 400 MCG/100 ML MLS IVC SCH ×6 (00:26→20:28)
[2021-08-12] MEDS: Cisatracurium 400 MG in 0.9 % Sodium Chloride 360 ML IVC SCH ×2 (00:50→14:04)
[2021-08-12] MEDS: Artificial Tears SOLN 15 ML BOTTLE BOTH EYES SCH ×6 (03:26→23:54)
[2021-08-12] MEDS: Ipratropium 1 PUFF INHALER IH SCH ×6 (03:42→23:28)
[2021-08-12] MEDS: Insulin LISPRO 300 UNITS/3 ML VIAL SUBQ SCH ×6 (03:50→23:54)
[2021-08-12] MEDS: FentaNYL (PF) 2,500 MCG/50 ML IV.SOLN IVC SCH ×2 (03:51→15:09)
[2021-08-12] MEDS: Piperacillin/Tazobactam 3.375 GM in 0.9 % Sodium Chloride Mini Bag 100 ML IVPB SCH ×4 (03:55→21:47)
[2021-08-12 04:07] LABS: Heparin anti-factor XA UFH 0.46 IU/mL (0.30-0.70)
[2021-08-12 04:17] LABS: Hematocrit 44.3 % (37.5-50.1); Hemoglobin 13.6 g/dL (12.9-16.9); Mean Corpuscular HGB Conc 30.7 g/dL (31.6-35.5); Mean Corpuscular Hemoglobin 29.9 pg (28.0-33.3); Mean Corpuscular Volume 97.4 fL (83.0-100.0); Mean Platelet Volume 10.9 fL (9.4-12.4); Nucleated Red Blood Cells 0.2 /100 WBC (0); Platelet Count 230 K/mcL (140-400); Red Blood Count 4.55 M/mcL (4.19-5.50); Red Cell Distribution Width 12.4 % (11.5-14.5); White Blood Count 28.5 K/mcL (4.3-11.1)
[2021-08-12 04:26] LABS: BUN/Creatinine Ratio 35 (6-26); Blood Urea Nitrogen 25 mg/dL (6-20); Calcium 8.4 mg/dL (8.6-10.3); Carbon Dioxide 36 mEq/L (23-29); Chloride 95 mEq/L (98-107); Glucose 274 mg/dL (70-105); Magnesium 2.1 mg/dL (1.6-2.6); Osmolality,Calculated 296 (280-300); Phosphorous 3.4 mg/dL (2.7-4.5); Potassium 4.7 mEq/L (3.5-5.1); Sodium 136 mEq/L (136-145); eGFR For African Americans > 60 (> 60); eGFR For Non-African Americans > 60 (> 60)
[2021-08-12 04:41] LABS: Lymphocytes # 1.1 K/mcL (0.6-4.6); Neutrophils # 26.2 K/mcL (1.6-8.9); Platelet Estimate Normal (Normal); Smudge Cells Present (Not Present)
[2021-08-12 05:40] LABS: ABG Base Excess 9 mEq/L (-2 to 3); ABG HCO3 40 mEq/L (21-27); ABG Oxygen Saturation 93 % (95-98); ABG PCO2 85 mmHg (35-45); ABG PH 7.28 pH Units (7.32-7.45); ABG PO2 78 mmHg (85-104); ABG TCO2 42 mEq/L (20-26); Blood Gas VT 380 cc
[2021-08-12] MEDS: Chlorhexidine Rinse 15 ML MOUTHWASH MM SCH ×2 (08:56→19:47)
[2021-08-12] MEDS: Docusate Oral Soln 100 MG/10 ML UDC GTUBE SCH ×2 (08:56→19:47)
[2021-08-12] MEDS: Furosemide 40 MG/4 ML VIAL IVP SCH (08:56)
[2021-08-12] MEDS: Pantoprazole 40 MG VIAL IVP SCH ×2 (08:56→18:27)
[2021-08-12] MEDS: Insulin DETEMIR 100 UNIT/ML X5UNITS SUBQ SCH ×2 (08:57→20:24)
[2021-08-12] MEDS: Cholecalciferol (D-3) 1,000 UNIT (25MCG) TABLET PO SCH (08:57)
[2021-08-12] MEDS ORDERED: Insulin DETEMIR 100 UNIT/ML X5UNITS SUBQ ONE (10:00)
[2021-08-12] MEDS ORDERED: Clinimix 5%-20% SOLUTION 2,000 ML with MVI, adult with vitamin K 10 ML, Sodium Phosph... IVC SCH (17:00)
[2021-08-12] MEDS ORDERED: *HR* LORazepam 2 MG/ML VIAL IVP PRN (17:41)
[2021-08-12] MEDS: Norepinephrine 4 MG/254 ML IV.SOLN IVC SCH ×2 (18:23→21:30)
[2021-08-12 19:05] LABS: Hematocrit 47.5 % (37.5-50.1); Hemoglobin 14.5 g/dL (12.9-16.9)
[2021-08-12] MEDS ORDERED: *HR* Midazolam HCl 5 MG/5 ML VIAL IVP ONE ×3 (19:45→21:18)
[2021-08-12] MEDS ORDERED: Furosemide 40 MG/4 ML VIAL IVP ONE (20:48)
[2021-08-12] MEDS: Heparin 25,000 UNIT/250 ML 25,000 UNIT/250 ML IV.SOLN IVC SCH (20:50)
[2021-08-12] MEDS: Midazolam HCl 50 MG/100 ML IV.SOLN IVC SCH (21:46)
[2021-08-12 22:34] LABS: ABG Base Excess 7 mEq/L (-2 to 3); ABG HCO3 39 mEq/L (21-27); ABG Oxygen Saturation 91 % (95-98); ABG PCO2 90 mmHg (35-45); ABG PH 7.25 pH Units (7.32-7.45); ABG PO2 74 mmHg (85-104); ABG TCO2 42 mEq/L (20-26); Blood Gas Modality AF; Blood Gas VT 380 cc
[2021-08-12] MEDS ORDERED: Acetaminophen IV 500 MG/50 ML BAG IVPB ONE (23:58)
[2021-08-13] MEDS: Dexmedetomidine HCl 400 MCG/100 ML MLS IVC SCH ×6 (00:21→21:44)
[2021-08-13] MEDS: FentaNYL (PF) 2,500 MCG/50 ML IV.SOLN IVC SCH ×2 (02:30→17:14)
[2021-08-13] MEDS: Ipratropium 1 PUFF INHALER IH SCH ×5 (03:27→20:21)
[2021-08-13] MEDS: Cisatracurium 400 MG in 0.9 % Sodium Chloride 360 ML IVC SCH ×2 (03:40→17:17)
[2021-08-13] MEDS: Artificial Tears SOLN 15 ML BOTTLE BOTH EYES SCH ×5 (03:48→20:03)
[2021-08-13] MEDS: Insulin LISPRO 300 UNITS/3 ML VIAL SUBQ SCH ×5 (04:09→20:38)
[2021-08-13 04:33] LABS: ABG Base Excess 9 mEq/L (-2 to 3); ABG HCO3 38 mEq/L (21-27); ABG Oxygen Saturation 89 % (95-98); ABG PCO2 75 mmHg (35-45); ABG PH 7.32 pH Units (7.32-7.45); ABG PO2 65 mmHg (85-104); ABG TCO2 41 mEq/L (20-26); Blood Gas Modality AF; Blood Gas VT 380 cc
[2021-08-13 04:43] LABS: Nucleated Red Blood Cells 0.3 /100 WBC (0); Red Cell Distribution Width 13.1 % (11.5-14.5)
[2021-08-13 04:44] LABS: Mean Corpuscular HGB Conc 31.8 g/dL (31.6-35.5); Mean Corpuscular Volume 97.3 fL (83.0-100.0); Mean Platelet Volume 10.6 fL (9.4-12.4); Platelet Count 223 K/mcL (140-400); Red Blood Count 4.52 M/mcL (4.19-5.50)
[2021-08-13] MEDS ORDERED: Acetaminophen IV 500 MG/50 ML BAG IVPB ONE (04:54)
[2021-08-13 04:55] LABS: White Blood Count 34.5 K/mcL (4.3-11.1)
[2021-08-13 05:15] LABS: Basophilic Stippling 1+ (Not Present); Eosinophils # 0.7 K/mcL (0.0-0.6); Lymphocytes # 0.7 K/mcL (0.6-4.6); Monocytes # 2.1 K/mcL (0.0-1.3); Neutrophils # 31.1 K/mcL (1.6-8.9); Platelet Estimate Normal (Normal); Polychromasia 1+ (Not Present)
[2021-08-13] MEDS: Piperacillin/Tazobactam 3.375 GM in 0.9 % Sodium Chloride Mini Bag 100 ML IVPB SCH ×3 (05:19→20:03)
[2021-08-13 05:27] LABS: BUN/Creatinine Ratio 37 (6-26); Blood Urea Nitrogen 26 mg/dL (6-20); Calcium 8.3 mg/dL (8.6-10.3); Carbon Dioxide 37 mEq/L (23-29); Chloride 93 mEq/L (98-107); Glucose 239 mg/dL (70-105); Magnesium 1.9 mg/dL (1.6-2.6); Osmolality,Calculated 295 (280-300); Phosphorous 3.2 mg/dL (2.7-4.5); Potassium 4.3 mEq/L (3.5-5.1); Sodium 136 mEq/L (136-145); eGFR For African Americans > 60 (> 60); eGFR For Non-African Americans > 60 (> 60)
[2021-08-13] MEDS: Pantoprazole 40 MG VIAL IVP SCH ×2 (06:07→18:05)
[2021-08-13] MEDS: Heparin 25,000 UNIT/250 ML 25,000 UNIT/250 ML IV.SOLN IVC SCH ×2 (07:20→19:11)
[2021-08-13] MEDS: Chlorhexidine Rinse 15 ML MOUTHWASH MM SCH ×2 (07:34→20:03)
[2021-08-13] MEDS: Furosemide 40 MG/4 ML VIAL IVP SCH (07:35)
[2021-08-13] MEDS: Insulin DETEMIR 100 UNIT/ML X5UNITS SUBQ SCH ×2 (07:35→20:38)
[2021-08-13] MEDS: Cholecalciferol (D-3) 1,000 UNIT (25MCG) TABLET PO SCH (07:36)
[2021-08-13] MEDS: Docusate Oral Soln 100 MG/10 ML UDC GTUBE SCH ×2 (07:36→20:38)
[2021-08-13] MEDS ORDERED: Micafungin 100 MG in 0.9 % Sodium Chloride Mini Bag 100 ML IVPB SCH (09:00)
[2021-08-13] MEDS: Vancomycin 1,500 MG/265 ML IV.SOLN IVPB SCH ×2 (09:52→20:39)
[2021-08-13] MEDS: Midazolam HCl 50 MG/100 ML IV.SOLN IVC SCH (09:53)
[2021-08-13] MEDS ORDERED: Clinimix 5%-20% SOLUTION 2,000 ML with MVI, adult with vitamin K 10 ML, Sodium Phosph... IVC SCH (17:00)
[2021-08-13 19:52] VITALS: TEMP 100.8
[2021-08-13 21:00] VITALS: PULSE 112
[2021-08-13 21:01] VITALS: BP 102/50; O2SAT 92
== END 2021-08-13 22:23 | disposition short-term general hospital (02) | DRG 207 ==
LOC: 2NNU → SUATTDRO 22:46 → OBSVTOIN 22:46 → ICNU 08-02 13:19
PROVIDERS: ADMIT Student in an Organized Health Care Education/Training Program; ATTEND Student in an Organized Health Care Education/Training Program